=== PATIENT | female | born 1995 | race Caucasian/White ===

== ENCOUNTER 2016-09-01 10:09 | Emergency (ER) | payer BC ==
[~2016-09-01] VITALS: Ht 165.1 cm; Wt 82.2 kg
[~2016-09-01 10:09] MED LIST: ADVIR
[2016-09-01 10:16] VITALS: TEMP 36.9; Ht 165.1 cm; Wt 82.2 kg
[2016-09-01] MEDS ORDERED: RABIES IMMUNE GLOBULIN (HUMAN) 150 INTER.UNIT/ML 2 ML VIAL IM. ONE (10:45)
[2016-09-01] MEDS ORDERED: RABIES VACCINE (IMOVAX) HUMAN DIPL CELL 2.5 INTER.UNIT/ML SYR IM. ONE (10:45)
--- NOTE | 2016-09-01 10:52 | EMERGENCY ROOM VISIT NOTE ---
ED Visit Note First contact with patient: 10:24 CHIEF COMPLAINT: Cat Bite left third finger HISTORY OF PRESENT ILLNESS: This 20-year-old female presents the ER with chief complaint that she was bit by a feral cat on her left third finger last evening at approximately 9 PM. She states that she washed out the wound. She could not find the cat to take it for testing. The patient's childhood immunizations are up-to-date. The patient denies any redness of the finger. The patient denies any numbness or tingling. REVIEW OF SYSTEMS: 6 system review was performed and was negative unless stated otherwise in history of present illness. PMH: The patient is healthy; ureteral reflux SOCIAL HISTORY: Patient lives with her parents PHYSICAL EXAM: Vital Signs: Were reviewed Reviewed Nurse's notes. GEN.: 20-year -old female appears in no acute distress. MENTAL Status: Alert and oriented 3. LEFT THIRD FINGER: On the distal phalanx of the finger there are 2 puncture wounds, one on the medial side and one on the lateral side. There are no signs of infection. EMERGENCY DEPARTMENT COURSE: The patient was given rabies immune globulin and rabies vaccine, the former based on weight. DIAGNOSIS: Cat bite left third finger Post exposure rabies prophylaxis DISCHARGE INSTRUCTIONS: Today is considered day 0. Return on day 3, 7 and 14 for the remainder of the rabies vaccine schedule. Take Augmentin as prescribed. Any signs of infection, follow-up with your family doctor. Use backup control while taking the Augmentin. Current/Historical Medications Scheduled Control Pills ( Control Pills), 1 TAB PO DAILY Allergies Coded Allergies: No Known Allergies (Verified , 09/01/16) Vital Signs Date Time Temp Pulse Resp B/P (MAP) Pulse Ox O2 Delivery O2 Flow Rate FiO2 09/01/16 10:16 36.9 64 20 106/71 99 Room Air Departure Information Referrals Rosalba Cavazos D.O. (PCP) Patient Instructions [facility]
[2016-09-01] MEDS ORDERED: AMOX875T PO (10:54)
[2016-09-01 12:07] VITALS: BP 112/65; PULSE 74; O2SAT 96
[2016-09-15] MEDS ORDERED: BCPILLS PO (10:41)
== END 2016-09-01 12:08 | disposition home or self-care (01) ==
LOC: C.EDB 10:12 → C.EDA 12:08
DX: S61.253A Open bite of left middle finger without damage to nail, initial encounter (principal); W55.01XA Bitten by cat, initial encounter; N13.70 Vesicoureteral-reflux, unspecified; Z79.3 Long term (current) use of hormonal contraceptives; Z23 Encounter for immunization; Z20.3 Contact with and (suspected) exposure to rabies

== ENCOUNTER 2016-09-04 17:01 | Emergency (ER) | payer BC ==
[~2016-09-04] VITALS: Ht 165.1 cm; Wt 81.2 kg
[~2016-09-04 17:01] MED LIST changes: -ADVIR; +AMOX875T PO
[2016-09-04 17:15] VITALS: BP 117/82; TEMP 37; Ht 165.1 cm; Wt 81.2 kg
[2016-09-04] MEDS ORDERED: RABIES VACCINE (IMOVAX) HUMAN DIPL CELL 2.5 INTER.UNIT/ML SYR IM. ONE (17:30)
[2016-09-04 17:51] VITALS: PULSE 60; O2SAT 97
--- NOTE | 2016-09-04 20:59 | EMERGENCY ROOM VISIT NOTE ---
ED Visit Note First contact with patient: 17:19 CHIEF COMPLAINT: Rabies prophylaxis HISTORY OF PRESENT ILLNESS: This 20-year-old female patient presents to the emergency department for their second rabies shot. The patient has not had any complications from the previous injections. They deny any other complaints. REVIEW OF SYSTEMS: A 6 system review of systems was completed with positives and pertinent negatives listed in the HPI. ALLERGIES: No known allergies MEDICATIONS: No chronic medications PMH: Unchanged from previous visit. PHYSICAL EXAM: Vital Signs: Reviewed Nurse's notes, vital signs stable. GENERAL : White female, in no acute distress, well-developed, well-nourished. HEAD: Atraumatic, without temporal or scalp tenderness. EYES: PERRLA, EOMI, no discharge or injection. SKIN: Normal. NEUROLOGICAL: Alert and cooperative. Sensory and motor functions grossly intact. EMERGENCY DEPARTMENT COURSE: I examined the patient. The patient was given Imovax 1ml IM. The patient was observed for 20 minutes with no reaction. The patient was discharged home in stable condition. Current/Historical Medications Scheduled Amoxicillin & Pot Clavulanate (Augmentin 875-125 mg), 1 TAB PO BID Control Pills ( Control Pills), 1 TAB PO DAILY Allergies Coded Allergies: No Known Allergies (Verified , 09/04/16) Vital Signs Date Time Temp Pulse Resp B/P (MAP) Pulse Ox O2 Delivery O2 Flow Rate FiO2 09/04/16 17:51 60 16 97 09/04/16 17:15 37.0 64 18 117/82 97 Room Air Medications Administered Medications (Trade) Dose Ordered Sig/Anne Route Start Time Stop Time Status Last Admin Dose Admin Rabies Vaccine Human Diploid Cell (Imovax Rabies) 2.5 interunit ONCE ONCE IM. 09/04/16 17:30 09/04/16 17:31 DC 09/04/16 17:32 2.5 INTERUNIT Departure Information Impression Primary Impression: Need for post exposure prophylaxis for rabies Dispostion Home / Self-Care Condition [employer] HOME CARE DOCUMENTATION FORM, IMPORTANT VISIT INFORMATION Patient Instructions [facility] Additional Instructions Continue your rabies immunization series as previously directed.
[2016-09-15] MEDS ORDERED: BCPILLS PO (10:41)
== END 2016-09-04 17:51 | disposition home or self-care (01) ==
LOC: C.EDB 17:02 → C.EDD 17:51
DX: Z23 Encounter for immunization (principal); Z20.3 Contact with and (suspected) exposure to rabies

== ENCOUNTER 2016-09-08 16:11 | Emergency (ER) | payer BC ==
[~2016-09-08] VITALS: Ht 165.1 cm; Wt 81.3 kg
[2016-09-08 16:22] VITALS: TEMP 37; Ht 165.1 cm; Wt 81.3 kg
[2016-09-08] MEDS ORDERED: RABIES VACCINE (IMOVAX) HUMAN DIPL CELL 2.5 INTER.UNIT/ML SYR IM. ONE (16:45)
[2016-09-08 17:24] VITALS: BP 114/68; PULSE 71; O2SAT 97
--- NOTE | 2016-09-08 21:43 | EMERGENCY ROOM VISIT NOTE ---
ED Visit Note First contact with patient: 16:28 CHIEF COMPLAINT: Rabies vaccination. HISTORY OF PRESENT ILLNESS: Ms. Pulido is a 21-year-old white female who ambulates into the ED requesting her third rabies vaccination. Patient reports she has not had any side effect or complications from her previous rabies vaccinations. Additionally she reports she is feeling well and denies fevers, chills, sweats, joint pains, chest pain, shortness of breath, abdominal pain, nausea/vomiting, decreased appetite. REVIEW OF SYSTEMS: As noted above in History of Present Illness. PHYSICAL EXAM: Vital Signs: Date Time Temp Pulse Resp B/P (MAP) Pulse Ox O2 Delivery O2 Flow Rate FiO2 09/08/16 17:24 71 16 114/68 97 09/08/16 16:22 37.0 70 18 110/67 99 Room Air GENERAL: 21-year-old white female in no acute distress, nontoxic-appearing, afebrile and hemodynamically stable. NEUROLOGICAL: Awake, alert and oriented to person, place and time. Answering questions appropriately and following commands. Normal gait. SKIN: Warm, dry and pink. EMERGENCY DEPARTMENT COURSE: Patient is assessed as noted above. Patient was given 2.5 interunits of rabies vaccination IM. Patient was educated about today's findings and instructed on her treatment plan ; she verbalized understanding and agreement with this plan. CLINICAL IMPRESSION: Post exposure rabies prophylaxis. DISPOSITION: Patient discharged to home in stable condition; prior to discharge she was reassessed and reported that she was pain and symptom-free. PLAN: Patient was encouraged to continue her current treatment plan from her previous immunizations and keep her current immunizations schedule. Patient was encouraged return the ED sooner for any reaction to her medications , abnormal symptoms or any new/concerning symptoms.
[2016-09-15] MEDS ORDERED: BCPILLS PO (10:41)
== END 2016-09-08 17:26 | disposition home or self-care (01) ==
LOC: C.EDB 16:12 → C.EDD 17:26
DX: Z23 Encounter for immunization (principal); Z20.3 Contact with and (suspected) exposure to rabies; W55.01XD Bitten by cat, subsequent encounter

== ENCOUNTER 2016-09-15 16:38 | Emergency (ER) | payer BC ==
[~2016-09-15] VITALS: Ht 165.1 cm; Wt 81.4 kg
[~2016-09-15 16:38] MED LIST changes: -AMOX875T PO; +BCPILLS PO
[2016-09-15 16:43] VITALS: TEMP 36.8; Ht 165.1 cm; Wt 81.4 kg
[2016-09-15] MEDS ORDERED: RABIES VACCINE (IMOVAX) HUMAN DIPL CELL 2.5 INTER.UNIT/ML SYR IM. ONE (17:00)
--- NOTE | 2016-09-15 17:08 | EMERGENCY ROOM VISIT NOTE ---
ED Visit Note First contact with patient: 16:56 CHIEF COMPLAINT: Rabies prophylaxis HISTORY OF PRESENT ILLNESS: This 21 old female patient presents to the emergency department ambulatory for their last rabies shot. The patient has not had any complications from the previous injections. They deny any other complaints. REVIEW OF SYSTEMS: A 6 system review of systems was completed with positives and pertinent negatives listed in the HPI. ALLERGIES: No known drug allergies MEDICATIONS: Unchanged from previous PMH: Unchanged from previous visit. PHYSICAL EXAM: Vital Signs: Reviewed Nurse's notes, vital signs stable. GENERAL : This is a 21-year-old female, in no acute distress, well-developed, well- nourished. HEAD: Atraumatic, without temporal or scalp tenderness. EYES: PERRLA, EOMI, no discharge or injection. SKIN: Normal. NEUROLOGICAL: Alert and cooperative. Sensory and motor functions grossly intact. EMERGENCY DEPARTMENT COURSE: I examined the patient. The patient was given Imovax 1ml IM. The patient was observed for 20 minutes with no reaction. The patient was discharged home in stable condition. DIAGNOSIS: Rabies prophylaxis DISCHARGE INSTRUCTIONS: Return for any complications. Current/Historical Medications Scheduled Control Pills ( Control Pills), 1 TAB PO DAILY Allergies Coded Allergies: No Known Allergies (Verified , 09/04/16) Vital Signs Date Time Temp Pulse Resp B/P (MAP) Pulse Ox O2 Delivery O2 Flow Rate FiO2 09/15/16 17:47 50 110/65 100 Room Air 09/15/16 16:43 36.8 51 20 109/58 99 Room Air Medications Administered Medications (Trade) Dose Ordered Sig/Anne Route Start Time Stop Time Status Last Admin Dose Admin Rabies Vaccine Human Diploid Cell (Imovax Rabies) 2.5 interunit ONCE ONCE IM. 09/15/16 17:00 09/15/16 17:01 DC 09/15/16 17:32 2.5 INTERUNIT Departure Information Impression Primary Impression: Rabies, need for prophylactic vaccination against Dispostion Home / Self-Care Condition GOOD Referrals No Doctor, Assigned (PCP) Patient Instructions [facility] Additional Instructions Return for any complications.
[2016-09-15 17:47] VITALS: BP 110/65; PULSE 50; O2SAT 100
== END 2016-09-15 18:01 | disposition home or self-care (01) ==
LOC: C.EDB 16:39 → C.EDD 18:01
DX: Z23 Encounter for immunization (principal); Z20.3 Contact with and (suspected) exposure to rabies

== ENCOUNTER 2020-05-19 21:40 | Inpatient (IN) ==
[2020-05-19] MEDS ORDERED: PENICILLIN G POTASSIUM 6 MU in DEXTROSE 5% 250 ML IV STA (22:41)
[2020-05-19] MEDS ORDERED: OXYTOCIN 30 UNITS/500 ML BAG IV PRN (22:41)
--- NOTE | 2020-05-19 22:58 | History & Physical Report ---
Date of Service May 19, 2020 Assessment & Plan (1) : 24 y/o G1 at 40 2/7 presenting in labor VSS Fetus cat 1 Labor - pt gia on her own, can assist w/ AROM after PCN and pt amenable GBS+, PCN started Epidural PRN COVID swab obtained History of Present Illness Chief Complaint: decreased FM, ctx Primary Care Provider: Greta Jones PA-C 24 y/o G1 at 40 2/7 wga w/ JARET 05/17 by US who presents w/ c/o persistent decreased FM and worsened ctx. Had acute visit this AM due to same concerns. Still has not had any significant movement, notes ctx q5min initially but then maybe q5-10 but closer to 5. Denies LOF, VB PNI: Hx ureteral reflux surgery COVID+ 12/2019 GBS+ by urine Past [employer] Hx: G1 current Periods regular q28-30d Denies hx STI 09/2019 neg cytology Allergies Allergy/AdvReac Type Severity Reaction Status Date / Time No Known Allergies Allergy Verified 05/19/20 21:55 Home Medications Medication Instructions Recorded Confirmed Type prenat.vits,esther,[id number] 1 tab PO DAILY 10/06/19 05/19/20 History Patient History Medical History Varicella vaccination Vesicoureteral reflux Surgical History H/O adenoidectomy S/P urological surgery reports surgery to repair ureteral reflux Status post wisdom tooth extraction Family History Mother Breast cancer Lung cancer Father Hypertension Denies family history of Ovarian cancer Colorectal cancer Uterine cancer Social History Smoking Status: Never smoker Hx Alcohol Use: No Hx Substance Use: No Preferred Language: Slovak Communication Ability: Effective Beliefs That Will Affect Care: None marital status: marital status details: Andrzej Boo (23) [phone] Current Living Situation: Spouse Current Living Situation Comment: lives with spouse, dogs current occupational status: employed 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 Other Information That Helps Us Care for You: No Feels Safe at Home: Yes Safety Concerns: Feels Safe At This Time Physical Activity Frequency: Daily Assistive Devices: Glasses Physical Exam Constitutional: WD/WN, vitals as above Respiratory: normal respiratory effort; no respiratory distress and no labored breathing Psychiatric: A+Ox3, euthymic affect Genitourinary: OB Exam Abdomen: + vertex (by suture and US) and + estimated weight (8-9lb) Manual OB Exam: + cervical dilation 4 cm, + cervical effacement 70% and + station high OB Exam Monitor Tracing: + external FHT monitor used, + external uterine monitor used (difficult to trace due to irritability with it and pt position) and + category I (130/mod/+accel/-decel) Results & Data ([facility]) Vital Signs (Past 12 Hours) Vital Signs Temp Pulse Resp BP 05/19/20 22:13 80 135/79 05/19/20 21:57 98.2 F 20 Laboratory Results OB Labs: Blood Type A Positive 10/13/19 Antibody Screen NEGATIVE 10/13/19 Hemoglobin 13.9 g/dL (12.0-16.0) 10/13/19 Hematocrit 40.5 % (37-47) 10/13/19 Mean Corpuscular Volume 85.6 fL (80-100) 10/13/19 Platelet Count 240 K/uL (130-400) 10/13/19 Rubella IgG Antibody Immune (Immune) 10/13/19 Rapid Plasma Reagin Nonreactive (Nonreactive) 10/13/19 Hepatitis B Surface Antigen Neg (Neg) 10/13/19 HIV (1&2) Ab and P24 Ag, 4th Gener Neg (Neg) 10/13/19 Glucose 1 Hour 50 gm Load 79 mg/dl (70-130) 12/05/19 OB Optional Labs: Chlamydia trachomatis RNA NOT DETECTED (NOT DETECTED) 10/13/19 Neisseria gonorrhoeae RNA NOT DETECTED (NOT DETECTED) 10/13/19 Labs Reviewed: declines quad and panorama 24-28 Week OB Labs 02/26/20 HCT/HGB 36.6/12.4 Diabetes Screen (1hr) 106 GBS+ urine Diagnostic Findings Ant placenta Code Status & VTE Plan VTE Prophylaxis Plan VTE Prophylaxis will be ordered: Yes Coding Level of Care Code None Diagnoses Z34.90
[2020-05-19 23:09] LABS: Hematocrit (blood only) 40.1 % (37-47); Hemoglobin 13.4 g/dL (12.0-16.0); Mean Corpuscular Hemoglobin 29.4 pg (25-34); Mean Corpuscular Hgb Conc 33.4 g/dL (32-36); Mean Corpuscular Volume 87.9 fL (80-100); Mean Platelet Volume 11.6 fL (7.4-10.4); Platelet Count 249 K/uL (130-400); RDW Coefficient of Variation 13.6 % (11.5-14.5); RDW Standard Deviation 43.7 fL (36.4-46.3); Red Blood Count 4.56 M/uL (4.2-5.4); White Blood Count 11.94 K/uL (4.8-10.8)
[2020-05-19] MEDS: LACTATED RINGER'S 1,000 ML IV PRN (23:15)
[2020-05-20] MEDS ORDERED: ePHEDrine sulfate 50 MG/ML AMP ONE (00:31)
[2020-05-20] MEDS ORDERED: SODIUM CHLORIDE 0.9% INJ 10 ML VIAL ONE (00:31)
[2020-05-20] MEDS ORDERED: BUPIVACAINE 0.25% 30 ML VIAL ONE (00:31)
[2020-05-20] MEDS ORDERED: fentaNYL 2MCG/ML ROPIVACAINE 1.25MG/ML 100 ML BAG EPI ONE (00:32)
[2020-05-20] MEDS ORDERED: fentaNYL citrate 100 MCG/2 ML VIAL ONE (00:32)
[2020-05-20] MEDS ORDERED: ONDANSETRON INJ 2 MG/ML 2 ML VIAL IV PRN (00:48)
[2020-05-20] MEDS ORDERED: fentaNYL 2MCG/ML ROPIVACAINE 1.25MG/ML 100 ML BAG EPI PRN (00:48)
[2020-05-20] MEDS ORDERED: diphenhydrAMINE 50 MG/ML VIAL IV PRN (00:48)
[2020-05-20] MEDS ORDERED: NALOXONE HCL 1 MG in SODIUM CHLORIDE 0.9% 1000ML 1,000 ML IV PRN (00:48)
[2020-05-20] MEDS ORDERED: ePHEDrine sulfate 50 MG/ML AMP IV PRN (00:48)
[2020-05-20] MEDS ORDERED: NALOXONE HCL 0.4 MG/1 ML VIAL/CARP IV PRN (00:48)
--- NOTE | 2020-05-20 00:51 | Anesthesiology Consultation ---
Date of Service May 20, 2020 Covid 19 negative on 05/19/20. Assessment & Plan Chart Review Chart Review: Patient NOT seen in Pre Admission Testing and Acceptable Risk for Labor Epidural Consults Requested none ASA ASA2 Proposed Anesthesia Anesthesia Type: Labor Epidural and CSE Risk / Benefits Reviewed With: PT / POA / Parent / Guardian, Accepts Plan and Informed Consent Obtained History Height/Weight Height: 5 ft 5 in Weight: 108.862 kg Allergies Allergy/AdvReac Type Severity Reaction Status Date / Time No Known Allergies Allergy Verified 05/19/20 21:55 Medications Home Medications Medication Instructions Recorded Confirmed Last Taken prenat.vits,esther,ixq-vmum-zbkzs 1 tab PO DAILY 10/06/19 05/19/20 05/17/20 Active Medications Generic Name Dose Route Start Last Admin Trade Name Freq PRN Reason Stop Dose Admin Lactated Ringer's 1,000 mls @ 125 mls/hr 05/19/20 22:41 05/20/20 00:00 Lr IV 05/21/20 22:40 125 mls/hr .Q8H PRN Infusion L&D Protocol Protocol NPO Date Last Intake of Fluids: 05/19/20 Time Last Intake of Fluids: 22:00 Date Last Intake of Solids: 05/19/20 Time Last Intake of Solids: 18:00 Past Medical History Medical History (Updated 05/20/20 @ 00:51 by Duarte Rose MD) Obesity Varicella vaccination Vesicoureteral reflux Exercise / Class Metabolic Activity II 4-5 Yardwork/Stairs/Walk up hill Past Family History Family History Mother Breast cancer Lung cancer Father Hypertension Denies family history of Ovarian cancer Colorectal cancer Uterine cancer Past Surgical History Surgical History H/O adenoidectomy S/P urological surgery reports surgery to repair ureteral reflux Status post wisdom tooth extraction Past Anesthesia History No Hx of Anesthesia Complications and No Family Hx of Anesthesia Complications History of PONV No Hx of PONV and No Hx of Motion Sickness Social History Smoking Status: Never smoker Hx Alcohol Use: No Hx Substance Use: No Review of Systems no chest pain or sob Physical Exam Vital Signs Last Vital Signs Temp 36.8 C 05/19/20 21:57 Pulse 97 H 05/20/20 00:46 Resp 20 05/19/20 21:57 BP 127/61 05/20/20 00:38 Pulse Ox 99 05/20/20 00:46 Constitutional + obese ENMT Mouth: no TMJ abnormality Thyromental Distance: > or= 3.5 Finger Breadths Mallampati Class: II Neck normal visual inspection Respiratory normal respiratory effort Auscultation: lungs clear to auscultation bilaterally Cardiovascular Rate/Rhythm: regular rate and regular rhythm Musculoskeletal Spine: normal cervical ROM Neurologic moves all extremities Psychiatric Orientation: alert and oriented x 3 Testing Laboratory Results 05/19/20 22:56
[2020-05-20] MEDS: LACTATED RINGER'S 1,000 ML IV PRN ×2 (01:41→10:12)
[2020-05-20] MEDS: PENICILLIN G POTASSIUM 3 MU in DEXTROSE 5% 100 ML IV PRN ×3 (03:14→10:59)
--- NOTE | 2020-05-20 04:44 | Labor Progress Brief Note ---
Date of Service May 20, 2020 Assessment & Plan (1) : 24 y/o G1 at 40 2/7 presenting in labor VSS Fetus cat 1 Labor - now s/p arom, progressing spontaneously. Ctx pattern is slightly irregular, but as pt is progressing will continue to monitor GBS+, PCN Epidural in place Admission and Anticipated Discharge Date Admission Date: May 19, 2020 Physical Exam Constitutional: WD/WN, vitals as above Respiratory: normal respiratory effort; no respiratory distress and no labored breathing Genitourinary: Manual OB Exam: + cervical dilation (5-6), + cervical effacement 70%, + station -2 and + amniotic fluid (membranes were noted to be bulging out of introitus, AROM clear fluid) OB Exam Monitor Tracing: + external FHT monitor used, + external uterine monitor used (q3-7) and + category I (140/mod/+accel/-decel) Results & Data ([facility]) Vital Signs (Past 12 Hours) Vital Signs Temp Pulse Resp BP Pulse Ox 05/20/20 04:36 78 99 05/20/20 04:31 72 97 05/20/20 04:27 69 113/57 L 05/20/20 04:26 68 97 05/20/20 04:21 79 96 05/20/20 04:16 83 96 05/20/20 04:11 57 L 113/57 L 98 05/20/20 04:06 63 97 05/20/20 04:01 55 L 97 05/20/20 03:56 61 119/58 L 98 05/20/20 03:51 58 L 97 05/20/20 03:46 61 98 05/20/20 03:43 57 L 111/55 L 05/20/20 03:41 69 97 05/20/20 03:36 55 L 98 05/20/20 03:31 69 98 05/20/20 03:29 98.6 F 18 05/20/20 03:26 70 98 05/20/20 03:21 95 H 98 05/20/20 03:16 81 97 05/20/20 03:11 74 106/53 L 96 05/20/20 03:06 70 96 05/20/20 03:01 80 96 05/20/20 02:56 78 105/52 L 96 05/20/20 02:51 77 96 05/20/20 02:46 74 96 05/20/20 02:41 76 110/58 L 97 05/20/20 02:36 71 96 05/20/20 02:31 72 97 05/20/20 02:26 68 108/56 L 97 05/20/20 02:21 71 97 05/20/20 02:16 81 97 05/20/20 02:11 87 104/56 L 97 05/20/20 02:06 75 96 05/20/20 02:01 70 16 97 05/20/20 01:57 69 118/58 L 05/20/20 01:56 68 98 05/20/20 01:51 65 98 05/20/20 01:47 16 05/20/20 01:46 100 H 98 05/20/20 01:41 79 116/57 L 97 05/20/20 01:36 68 98 05/20/20 01:31 62 97 05/20/20 01:30 18 05/20/20 01:26 83 99 05/20/20 01:25 69 117/56 L 05/20/20 01:21 89 98 05/20/20 01:20 71 127/56 L 05/20/20 01:18 98.8 F 05/20/20 01:16 83 99 05/20/20 01:15 16 05/20/20 01:14 85 136/68 05/20/20 01:11 86 124/69 99 05/20/20 01:10 18 05/20/20 01:09 69 122/59 L 05/20/20 01:07 71 126/58 L 05/20/20 01:06 90 98 05/20/20 01:05 80 20 120/68 05/20/20 01:03 75 127/73 05/20/20 01:01 83 99 05/20/20 00:56 100 H 100 05/20/20 00:51 97 H 99 05/20/20 00:46 97 H 99 05/20/20 00:41 84 100 05/20/20 00:38 85 127/61 05/20/20 00:36 77 99 05/20/20 00:31 99 H 99 05/20/20 00:26 80 97 05/19/20 22:13 80 135/79 05/19/20 21:57 98.2 F 20 Coding Level of Care Code None Diagnoses Z34.90
--- NOTE | 2020-05-20 08:03 | Labor Progress Brief Note ---
Date of Service May 20, 2020 Assessment & Plan (1) : 24 y/o G1 at 40 2/7 presenting in labor VSS Fetus cat 1 Labor - Progressing well, continue repositioning GBS+, PCN Epidural in place Admission and Anticipated Discharge Date Admission Date: May 19, 2020 Physical Exam Constitutional: WD/WN, vitals as above Respiratory: normal respiratory effort; no respiratory distress and no labored breathing Psychiatric: A+Ox3, euthymic affect Genitourinary: Manual OB Exam: + cervical dilation 9 cm, + cervical effacement 90% and + station 0 OB Exam Monitor Tracing: + external FHT monitor used, + external uterine monitor used (q3-5min) and + category I (140/mod/+accel/-decel) Results & Data ([facility]) Vital Signs (Past 12 Hours) Vital Signs Temp Pulse Resp BP Pulse Ox 05/20/20 07:59 98.6 F 18 05/20/20 07:57 62 123/69 100 05/20/20 07:52 71 98 05/20/20 07:47 66 98 05/20/20 07:42 62 112/64 97 05/20/20 07:37 65 99 05/20/20 07:32 61 97 05/20/20 07:28 61 119/57 L 05/20/20 07:27 71 98 05/20/20 07:22 70 98 05/20/20 07:17 59 L 97 05/20/20 07:12 61 116/62 99 05/20/20 07:07 75 97 05/20/20 07:02 77 99 05/20/20 06:57 83 116/56 L 100 05/20/20 06:52 61 98 05/20/20 06:47 63 98 05/20/20 06:42 76 96 05/20/20 06:37 69 99 05/20/20 06:32 67 98 05/20/20 06:27 62 107/55 L 96 05/20/20 06:22 58 L 98 05/20/20 06:17 63 97 05/20/20 06:12 98.2 F 57 L 18 122/56 L 98 05/20/20 06:07 67 100 05/20/20 06:02 58 L 100 05/20/20 05:57 63 118/61 97 05/20/20 05:52 60 99 05/20/20 05:47 72 99 05/20/20 05:42 72 121/58 L 99 05/20/20 05:36 66 99 05/20/20 05:31 83 100 05/20/20 05:27 70 130/77 05/20/20 05:26 71 99 05/20/20 05:24 16 05/20/20 05:21 76 98 05/20/20 05:16 63 97 05/20/20 05:12 75 127/58 L 93 05/20/20 05:11 75 95 05/20/20 05:06 61 98 05/20/20 05:01 58 L 97 05/20/20 04:58 57 L 110/56 L 05/20/20 04:56 64 98 05/20/20 04:51 75 98 05/20/20 04:46 74 98 05/20/20 04:43 99.0 F 67 18 119/57 L 05/20/20 04:41 62 98 05/20/20 04:36 78 99 05/20/20 04:31 72 97 05/20/20 04:27 69 113/57 L 05/20/20 04:26 68 97 05/20/20 04:21 79 96 05/20/20 04:16 83 96 05/20/20 04:11 57 L 113/57 L 98 05/20/20 04:06 63 97 05/20/20 04:01 55 L 97 05/20/20 03:56 61 119/58 L 98 05/20/20 03:51 58 L 97 05/20/20 03:46 61 98 05/20/20 03:43 57 L 111/55 L 05/20/20 03:41 69 97 05/20/20 03:36 55 L 98 05/20/20 03:31 69 98 05/20/20 03:29 98.6 F 18 05/20/20 03:26 70 98 05/20/20 03:21 95 H 98 05/20/20 03:16 81 97 05/20/20 03:11 74 106/53 L 96 05/20/20 03:06 70 96 05/20/20 03:01 80 96 05/20/20 02:56 78 105/52 L 96 05/20/20 02:51 77 96 05/20/20 02:46 74 96 05/20/20 02:41 76 110/58 L 97 05/20/20 02:36 71 96 05/20/20 02:31 72 97 05/20/20 02:26 68 108/56 L 97 05/20/20 02:21 71 97 05/20/20 02:16 81 97 05/20/20 02:11 87 104/56 L 97 05/20/20 02:06 75 96 05/20/20 02:01 70 16 97 05/20/20 01:57 69 118/58 L 05/20/20 01:56 68 98 05/20/20 01:51 65 98 05/20/20 01:47 16 05/20/20 01:46 100 H 98 05/20/20 01:41 79 116/57 L 97 05/20/20 01:36 68 98 05/20/20 01:31 62 97 05/20/20 01:30 18 05/20/20 01:26 83 99 05/20/20 01:25 69 117/56 L 05/20/20 01:21 89 98 05/20/20 01:20 71 127/56 L 05/20/20 01:18 98.8 F 05/20/20 01:16 83 99 05/20/20 01:15 16 05/20/20 01:14 85 136/68 05/20/20 01:11 86 124/69 99 05/20/20 01:10 18 05/20/20 01:09 69 122/59 L 05/20/20 01:07 71 126/58 L 05/20/20 01:06 90 98 05/20/20 01:05 80 20 120/68 05/20/20 01:03 75 127/73 05/20/20 01:01 83 99 05/20/20 00:56 100 H 100 05/20/20 00:51 97 H 99 05/20/20 00:46 97 H 99 05/20/20 00:41 84 100 05/20/20 00:38 85 127/61 05/20/20 00:36 77 99 05/20/20 00:31 99 H 99 05/20/20 00:26 80 97 05/19/20 22:13 80 135/79 05/19/20 21:57 98.2 F 20 Coding Level of Care Code None Diagnoses Z34.90
[2020-05-20] MEDS ORDERED: OXYTOCIN 30 UNITS/500 ML BAG IV PRN ×2 (10:28→15:12)
--- NOTE | 2020-05-20 10:42 | Labor Progress Brief Note ---
Date of Service May 20, 2020 Subjective Reason For Note: Routine Evaluation pt feeling lower pelvic discomfort. has epidural. no rectal pressure Assessment & Plan (1) Supervision of normal first : (2) Normal labor and delivery: no cx change. rec pitocin augmentation. pt agreeable. fhts categ 1. Admission and Anticipated Discharge Date Admission Date: May 19, 2020 Physical Exam Constitutional: WD/WN, vitals as above Genitourinary: Manual OB Exam: + cervical dilation (9), + cervical effacement 100% and + station + 1 OB Exam Monitor Tracing: + external FHT monitor used (140 mod variability ), + external uterine monitor used (q2-3), + category I and + normal FHT variability Results & Data ([facility]) Vital Signs (Past 12 Hours) Vital Signs Temp Pulse Resp BP Pulse Ox 05/20/20 10:32 71 97 05/20/20 10:28 98.4 F 86 18 126/55 L 05/20/20 10:27 76 98 05/20/20 10:22 85 99 05/20/20 10:17 81 98 05/20/20 10:12 89 99 05/20/20 10:11 78 129/69 05/20/20 10:07 68 98 05/20/20 10:02 70 98 05/20/20 09:57 75 98 05/20/20 09:52 66 98 05/20/20 09:47 80 98 05/20/20 09:42 78 98 05/20/20 09:41 77 134/84 05/20/20 09:37 76 99 05/20/20 09:32 94 H 99 05/20/20 09:27 66 97 05/20/20 09:22 76 98 05/20/20 09:17 62 97 05/20/20 09:12 61 122/68 98 05/20/20 09:07 62 98 05/20/20 09:02 73 98 05/20/20 08:57 69 117/58 L 97 05/20/20 08:52 64 97 05/20/20 08:47 70 98 05/20/20 08:43 68 117/60 05/20/20 08:42 66 98 05/20/20 08:37 65 96 05/20/20 08:32 64 97 05/20/20 08:28 61 117/59 L 05/20/20 08:27 63 97 05/20/20 08:22 63 97 05/20/20 08:17 62 98 05/20/20 08:12 69 124/98 98 05/20/20 08:07 67 97 05/20/20 08:02 71 97 05/20/20 07:59 98.6 F 18 05/20/20 07:57 62 123/69 100 05/20/20 07:52 71 98 05/20/20 07:47 66 98 05/20/20 07:42 62 112/64 97 05/20/20 07:37 65 99 05/20/20 07:32 61 97 05/20/20 07:28 61 119/57 L 05/20/20 07:27 71 98 05/20/20 07:22 70 98 05/20/20 07:17 59 L 97 05/20/20 07:12 61 116/62 99 05/20/20 07:07 75 97 05/20/20 07:02 77 99 05/20/20 06:57 83 116/56 L 100 05/20/20 06:52 61 98 05/20/20 06:47 63 98 05/20/20 06:42 76 96 05/20/20 06:37 69 99 05/20/20 06:32 67 98 05/20/20 06:27 62 107/55 L 96 05/20/20 06:22 58 L 98 05/20/20 06:17 63 97 05/20/20 06:12 98.2 F 57 L 18 122/56 L 98 05/20/20 06:07 67 100 05/20/20 06:02 58 L 100 05/20/20 05:57 63 118/61 97 05/20/20 05:52 60 99 05/20/20 05:47 72 99 05/20/20 05:42 72 121/58 L 99 05/20/20 05:36 66 99 05/20/20 05:31 83 100 05/20/20 05:27 70 130/77 05/20/20 05:26 71 99 05/20/20 05:24 16 05/20/20 05:21 76 98 05/20/20 05:16 63 97 05/20/20 05:12 75 127/58 L 93 05/20/20 05:11 75 95 05/20/20 05:06 61 98 05/20/20 05:01 58 L 97 05/20/20 04:58 57 L 110/56 L 05/20/20 04:56 64 98 05/20/20 04:51 75 98 05/20/20 04:46 74 98 05/20/20 04:43 99.0 F 67 18 119/57 L 05/20/20 04:41 62 98 05/20/20 04:36 78 99 05/20/20 04:31 72 97 05/20/20 04:27 69 113/57 L 05/20/20 04:26 68 97 05/20/20 04:21 79 96 05/20/20 04:16 83 96 05/20/20 04:11 57 L 113/57 L 98 05/20/20 04:06 63 97 05/20/20 04:01 55 L 97 05/20/20 03:56 61 119/58 L 98 05/20/20 03:51 58 L 97 05/20/20 03:46 61 98 05/20/20 03:43 57 L 111/55 L 05/20/20 03:41 69 97 05/20/20 03:36 55 L 98 05/20/20 03:31 69 98 05/20/20 03:29 98.6 F 18 05/20/20 03:26 70 98 05/20/20 03:21 95 H 98 05/20/20 03:16 81 97 05/20/20 03:11 74 106/53 L 96 05/20/20 03:06 70 96 05/20/20 03:01 80 96 05/20/20 02:56 78 105/52 L 96 05/20/20 02:51 77 96 05/20/20 02:46 74 96 05/20/20 02:41 76 110/58 L 97 05/20/20 02:36 71 96 05/20/20 02:31 72 97 05/20/20 02:26 68 108/56 L 97 05/20/20 02:21 71 97 05/20/20 02:16 81 97 05/20/20 02:11 87 104/56 L 97 05/20/20 02:06 75 96 05/20/20 02:01 70 16 97 05/20/20 01:57 69 118/58 L 05/20/20 01:56 68 98 05/20/20 01:51 65 98 05/20/20 01:47 16 05/20/20 01:46 100 H 98 05/20/20 01:41 79 116/57 L 97 05/20/20 01:36 68 98 05/20/20 01:31 62 97 05/20/20 01:30 18 05/20/20 01:26 83 99 05/20/20 01:25 69 117/56 L 05/20/20 01:21 89 98 05/20/20 01:20 71 127/56 L 05/20/20 01:18 98.8 F 05/20/20 01:16 83 99 05/20/20 01:15 16 05/20/20 01:14 85 136/68 05/20/20 01:11 86 124/69 99 05/20/20 01:10 18 05/20/20 01:09 69 122/59 L 05/20/20 01:07 71 126/58 L 05/20/20 01:06 90 98 05/20/20 01:05 80 20 120/68 05/20/20 01:03 75 127/73 05/20/20 01:01 83 99 05/20/20 00:56 100 H 100 05/20/20 00:51 97 H 99 05/20/20 00:46 97 H 99 05/20/20 00:41 84 100 05/20/20 00:38 85 127/61 05/20/20 00:36 77 99 05/20/20 00:31 99 H 99 05/20/20 00:26 80 97 Coding Level of Care Code None Diagnoses Supervision of normal first Z34.00 Normal labor and delivery O80
--- NOTE | 2020-05-20 13:50 | Labor Progress Brief Note ---
Date of Service May 20, 2020 Subjective Reason For Note: Routine Evaluation comfortable. no rectal pressure Assessment & Plan (1) Normal labor and delivery: will begin 2nd stage soon. min variability noted. Admission and Anticipated Discharge Date Admission Date: May 19, 2020 Physical Exam Constitutional: WD/WN, vitals as above Genitourinary: Manual OB Exam: + cervical dilation 10 cm, + cervical effacement 100% and + station (per nurse) + 1 OB Exam Monitor Tracing: + external FHT monitor used (150 min variability), + external uterine monitor used (q2) and + category I Results & Data ([facility]) Vital Signs (Past 12 Hours) Vital Signs Temp Pulse Resp BP Pulse Ox 05/20/20 13:42 82 98 05/20/20 13:37 86 98 05/20/20 13:32 81 97 05/20/20 13:27 93 H 132/74 97 05/20/20 13:22 85 97 05/20/20 13:17 71 97 05/20/20 13:12 72 138/79 97 05/20/20 13:07 69 97 05/20/20 13:02 71 97 05/20/20 12:57 61 129/65 97 05/20/20 12:52 68 96 05/20/20 12:47 71 96 05/20/20 12:42 68 130/71 98 05/20/20 12:37 69 96 05/20/20 12:32 67 96 05/20/20 12:27 67 96 05/20/20 12:26 70 130/66 05/20/20 12:22 69 96 05/20/20 12:17 75 97 05/20/20 12:12 91 H 98 05/20/20 12:11 74 131/60 05/20/20 12:07 74 96 05/20/20 12:02 66 97 05/20/20 11:57 75 98 05/20/20 11:56 75 123/58 L 05/20/20 11:52 70 97 05/20/20 11:47 76 98 05/20/20 11:42 74 96 05/20/20 11:41 67 125/60 05/20/20 11:37 75 98 05/20/20 11:32 90 98 05/20/20 11:27 80 98 05/20/20 11:26 76 127/67 05/20/20 11:22 73 98 05/20/20 11:17 81 98 05/20/20 11:13 80 119/68 05/20/20 11:12 74 97 05/20/20 11:07 78 97 05/20/20 11:02 87 98 05/20/20 10:57 92 H 98 05/20/20 10:56 81 120/58 L 05/20/20 10:52 84 98 05/20/20 10:47 72 97 05/20/20 10:43 68 116/56 L 05/20/20 10:42 66 97 05/20/20 10:37 69 97 05/20/20 10:32 71 97 05/20/20 10:28 98.4 F 86 18 126/55 L 05/20/20 10:27 76 98 05/20/20 10:22 85 99 05/20/20 10:17 81 98 05/20/20 10:12 89 99 05/20/20 10:11 78 129/69 05/20/20 10:07 68 98 05/20/20 10:02 70 98 05/20/20 09:57 75 98 05/20/20 09:52 66 98 05/20/20 09:47 80 98 05/20/20 09:42 78 98 05/20/20 09:41 77 134/84 05/20/20 09:37 76 99 05/20/20 09:32 94 H 99 05/20/20 09:27 66 97 05/20/20 09:22 76 98 05/20/20 09:17 62 97 05/20/20 09:12 61 122/68 98 05/20/20 09:07 62 98 05/20/20 09:02 73 98 05/20/20 08:57 69 117/58 L 97 05/20/20 08:52 64 97 05/20/20 08:47 70 98 05/20/20 08:43 68 117/60 05/20/20 08:42 66 98 05/20/20 08:37 65 96 05/20/20 08:32 64 97 05/20/20 08:28 61 117/59 L 05/20/20 08:27 63 97 05/20/20 08:22 63 97 05/20/20 08:17 62 98 05/20/20 08:12 69 124/98 98 05/20/20 08:07 67 97 05/20/20 08:02 71 97 05/20/20 07:59 98.6 F 18 05/20/20 07:57 62 123/69 100 05/20/20 07:52 71 98 05/20/20 07:47 66 98 05/20/20 07:42 62 112/64 97 05/20/20 07:37 65 99 05/20/20 07:32 61 97 05/20/20 07:28 61 119/57 L 05/20/20 07:27 71 98 05/20/20 07:22 70 98 05/20/20 07:17 59 L 97 05/20/20 07:12 61 116/62 99 05/20/20 07:07 75 97 05/20/20 07:02 77 99 05/20/20 06:57 83 116/56 L 100 05/20/20 06:52 61 98 05/20/20 06:47 63 98 05/20/20 06:42 76 96 05/20/20 06:37 69 99 05/20/20 06:32 67 98 05/20/20 06:27 62 107/55 L 96 05/20/20 06:22 58 L 98 05/20/20 06:17 63 97 05/20/20 06:12 98.2 F 57 L 18 122/56 L 98 05/20/20 06:07 67 100 05/20/20 06:02 58 L 100 05/20/20 05:57 63 118/61 97 05/20/20 05:52 60 99 05/20/20 05:47 72 99 05/20/20 05:42 72 121/58 L 99 05/20/20 05:36 66 99 05/20/20 05:31 83 100 05/20/20 05:27 70 130/77 05/20/20 05:26 71 99 05/20/20 05:24 16 05/20/20 05:21 76 98 05/20/20 05:16 63 97 05/20/20 05:12 75 127/58 L 93 05/20/20 05:11 75 95 05/20/20 05:06 61 98 05/20/20 05:01 58 L 97 05/20/20 04:58 57 L 110/56 L 05/20/20 04:56 64 98 05/20/20 04:51 75 98 05/20/20 04:46 74 98 05/20/20 04:43 99.0 F 67 18 119/57 L 05/20/20 04:41 62 98 05/20/20 04:36 78 99 05/20/20 04:31 72 97 05/20/20 04:27 69 113/57 L 05/20/20 04:26 68 97 05/20/20 04:21 79 96 05/20/20 04:16 83 96 05/20/20 04:11 57 L 113/57 L 98 05/20/20 04:06 63 97 05/20/20 04:01 55 L 97 05/20/20 03:56 61 119/58 L 98 05/20/20 03:51 58 L 97 05/20/20 03:46 61 98 05/20/20 03:43 57 L 111/55 L 05/20/20 03:41 69 97 05/20/20 03:36 55 L 98 05/20/20 03:31 69 98 05/20/20 03:29 98.6 F 18 05/20/20 03:26 70 98 05/20/20 03:21 95 H 98 05/20/20 03:16 81 97 05/20/20 03:11 74 106/53 L 96 05/20/20 03:06 70 96 05/20/20 03:01 80 96 05/20/20 02:56 78 105/52 L 96 05/20/20 02:51 77 96 05/20/20 02:46 74 96 05/20/20 02:41 76 110/58 L 97 05/20/20 02:36 71 96 05/20/20 02:31 72 97 05/20/20 02:26 68 108/56 L 97 05/20/20 02:21 71 97 05/20/20 02:16 81 97 05/20/20 02:11 87 104/56 L 97 05/20/20 02:06 75 96 05/20/20 02:01 70 16 97 05/20/20 01:57 69 118/58 L 05/20/20 01:56 68 98 05/20/20 01:51 65 98 05/20/20 01:47 16 05/20/20 01:46 100 H 98 Coding Level of Care Code None Diagnoses Normal labor and delivery O80
[2020-05-20] MEDS ORDERED: CARBOPROST TROMETHAMINE 250 MCG/ML AMPUL ONE (14:42)
--- NOTE | 2020-05-20 14:54 | Delivery Summary ---
Vaginal Delivery Summary Date of Service May 20, 2020 Vaginal Delivery Summary and 2nd Degree LAC The patient dilated to complete and pushed to deliver a viable female infant Apgars 8 and 9 via over 2nd degree perineal laceration. Mouth and nose bulb suctioned at perineum. Shoulders and body delivered with ease. Infant was vigorous and crying at . Cord clamped at 20 seconds of life and infant to maternal abdomen where the cord was then doubly clamped and cut. Placenta delivered spontaneously and intact, three-vessel cord. Hemostasis achieved with dilute pitocin and uterine massage and drainage of the bladder for approximately 100 cc under sterile conditions. Cervix and sulci intact. EBL 600 cc. Mother and baby stable recovery. [facility] Vaginal Delivery Charge Delivery Type Details: and 2nd Degree LAC
[2020-05-20] MEDS ORDERED: DIPHTHERIA/TETANUS/PERTUSSIS 0.5 ML SYR/VIAL IM ONE (15:12)
[2020-05-20] MEDS ORDERED: HYDROCORTISONE ACETATE 25 MG SUPP PR PRN (15:12)
[2020-05-20] MEDS ORDERED: ACETAMINOPHEN 325 MG TAB PO PRN (15:12)
[2020-05-20] MEDS ORDERED: bisacodyL 10 MG SUPP PR PRN (15:12)
[2020-05-20] MEDS ORDERED: BENZOCAINE 20% AER SPR 82.5 GM CAN EXT PRN (15:12)
[2020-05-20] MEDS ORDERED: SUPERCREAM 0.870% 15 GM JAR EXT PRN (15:12)
[2020-05-20] MEDS ORDERED: OXYTOCIN 20 UNITS in LACTATED RINGER'S 1,000 ML IV SCH (15:30)
[2020-05-20] MEDS ORDERED: miSOPROStoL 200 MCG TAB ONE (16:16)
[2020-05-20] MEDS ORDERED: miSOPROStoL 200 MCG TAB PR ONE (16:20)
--- NOTE | 2020-05-20 17:03 | Anesthesia Procedure Note ---
Date of Service May 20, 2020 Anesthesia Post Epidural Note Vital Signs Vital Signs: Temp Pulse Resp BP Pulse Ox 36.7 C 118 H 18 136/72 97 05/20/20 14:13 05/20/20 16:56 05/20/20 10:28 05/20/20 16:56 05/20/20 14:22 Notes Mental Status: alert / awake / arousable Nausea / Vomiting: adequately controlled Pain: adequately controlled Airway Patency, RR, SpO2: stable & adequate BP & HR: stable & adequate Hydration State: stable & adequate Neuraxial Anesthesia: was administered and sensory block is resolving Anesthetic Complications: no major complications apparent Epidural: Removed without complications and With tip intact
[2020-05-20] MEDS: IBUPROFEN 600 MG TAB PO PRN (18:12)
[2020-05-20] MEDS ORDERED: DOCUSATE SODIUM 100 MG CAP PO ONE (20:00)
--- NOTE | 2020-05-21 05:35 | Obstetrical Progress Note ---
Date of Service <Henok Rooney MD - Last Filed: 05/21/20 06:42> May 21, 2020 Assessment & Plan <Henok Rooney MD - Last Filed: 05/21/20 06:42> (1) Normal labor and delivery: - PNL: Rh pos, RI, GBS pos (received intrapartum PCN), COVID neg - Feels well today. Eating well, voiding well, ambulating well - Pain well controlled with ibuprofen 600mg Q4H PRN - Routine care -- OOB, ambulation, diet progression as tolerated - After discharge will have 6 week follow-up with Dr. Howe Subjective <Henok Rooney MD - Last Filed: 05/21/20 06:42> Cassidy is a 24 y/o female who is PPD #1 following at 40 2/7 weeks. She reports feeling well overall this morning. Some abdominal cramping and 3/10 pain well managed on analgesics. Voiding well. Tolerating meals overnight without difficulty. Patient has been able to ambulate some. Has been passing gas but not yet had a bowel movement. Has persistent lochia with some improvement this morning. Currently . Review of Systems Denies fever or chills. Denies shortness of breath or cough. Denies chest pain. Denies breast pain. Denies dysuria. Denies leg pain or leg swelling. Denies headache or changes in vision. Physical Exam <Henok Rooney MD - Last Filed: 05/21/20 06:42> General: Alert, oriented. No acute distress. Cardiac: Regular rate and rhythm. No murmurs. Respiratory: Clear to auscultation bilaterally a/p, no wheezes/rales/rhonchi. No increased work of breathing. Symmetrical chest rise. No respiratory distress. Abdomen: Soft, nontender, nondistended. Bowel sounds present. Uterus: Uterine fundus firm, palpable ~1 cm below umbilicus. Lower Extremities: No lower extremity edema or swelling. No deep calf pain. Kristy's negative bilaterally. Results & Data ([facility]) <Henok Rooney MD - Last Filed: 05/21/20 06:42> Vital Signs (Past 12 Hours) Vital Signs Temp Pulse Pulse Resp BP Pulse Ox 05/21/20 03:40 36.7 C 76 18 135/85 98 05/20/20 23:30 37.1 C 84 18 135/77 98 05/20/20 19:50 36.7 C 100 H 18 136/82 97 05/20/20 18:00 37.5 C 115 H 20 129/82 97 <Ana Rosa Howe MD, FACOG - Last Filed: 05/21/20 07:18> Co-Signing Physician Notes Resident Physician Supervision Note: I was present with Dr. Rowan during the history and exam. I discussed the case with the resident and agree with the findings and plan as documented in the note. Any exceptions or clarifications are listed here: doing well, , voiding, ambulating, ff 2 down, nt. ext nt calves. routine care. Documented By: Ana Rosa Howe MD, FACOG Resident Activity Tracking <Henok Rooney MD - Last Filed: 05/21/20 06:42> Resident Involvement: Resident Care Provided Care Provided: OB Delivery
[2020-05-21 06:56] LABS: Hematocrit (blood only) 30.4 % (37-47); Hemoglobin 10.2 g/dL (12.0-16.0)
[2020-05-21] MEDS: IBUPROFEN 600 MG TAB PO PRN ×3 (07:13→21:20)
[2020-05-21] MEDS: PRENATAL VITAMIN 1 TAB PO SCH (08:49)
[2020-05-21] MEDS: DOCUSATE SODIUM 100 MG CAP PO SCH ×2 (08:49→20:45)
[2020-05-21] MEDS ORDERED: bisacodyL 5 MG TABEC PO SCH (20:00)
[2020-05-22] MEDS: IBUPROFEN 600 MG TAB PO PRN ×2 (03:53→08:18)
--- NOTE | 2020-05-22 04:36 | Obstetrical Progress Note ---
Date of Service <Henok Rooney MD - Last Filed: 05/22/20 06:25> May 22, 2020 Assessment & Plan <Henok Rooney MD - Last Filed: 05/22/20 06:25> (1) Normal labor and delivery: - PNL: Rh pos, RI, GBS pos (received intrapartum PCN), COVID neg - Feels well today. Eating well, voiding well, ambulating well - Pain well controlled with ibuprofen 600mg Q4H PRN - Routine care -- OOB, ambulation, diet progression as tolerated - After discharge will have 6 week follow-up with Dr. Howe Subjective <Henok Rooney MD - Last Filed: 05/22/20 06:25> Cassidy is a 24 y/o female who is PPD #2 following at 40 2/7 weeks. She reports feeling well overall this morning. Some abdominal cramping and 1/10 pain well managed on analgesics. Voiding well. Tolerating meals overnight without difficulty. Patient has been able to ambulate some. Is passing gas and had a bowel movement. Has persistent lochia with some improvement this morning. Currently . Physical Exam <Henok Rooney MD - Last Filed: 05/22/20 06:25> General: Alert, oriented. No acute distress. Cardiac: Regular rate and rhythm. No murmurs. Respiratory: Clear to auscultation bilaterally a/p, no wheezes/rales/rhonchi. No increased work of breathing. Symmetrical chest rise. No respiratory distress. Abdomen: Soft, nontender, nondistended. Bowel sounds present. Uterus: Uterine fundus firm, palpable ~2 cm below umbilicus. Lower Extremities: No lower extremity edema or swelling. No deep calf pain. Kristy's negative bilaterally. Results & Data ([facility]) <Henok Rooney MD - Last Filed: 05/22/20 06:25> Vital Signs (Past 12 Hours) Vital Signs Temp Pulse Resp BP Pulse Ox 05/21/20 23:45 36.7 C 85 17 126/74 98 05/21/20 19:35 36.7 C 80 16 109/72 97 <Bettie Jeffrey MD - Last Filed: 05/22/20 08:07> Co-Signing Physician Notes Resident Physician Supervision Note: I interviewed and examined the patient. Discussed with Dr. Rowan and agree with findings and plan as documented in the note. Any exceptions or clarifications are listed here: [ ] Documented By: Bettie Jeffrey MD, FACOG Resident Activity Tracking <Henok Rooney MD - Last Filed: 05/22/20 06:25> Resident Involvement: Resident Care Provided Care Provided: OB Delivery
[2020-05-22 06:41] LABS: Hematocrit (blood only) 31.7 % (37-47); Hemoglobin 10.4 g/dL (12.0-16.0)
[2020-05-22] MEDS: DOCUSATE SODIUM 100 MG CAP PO SCH (08:18)
[2020-05-22] MEDS: PRENATAL VITAMIN 1 TAB PO SCH (08:18)
== END 2020-05-22 13:30 | disposition home or self-care (01) | DRG 807 ==
LOC: OPB 21:40 → 4S1 21:43 → 4S2 05-20 18:18